=== PATIENT | female | born 1985 | race Caucasian/White ===

== ENCOUNTER 2017-01-24 10:41 | Inpatient (IN) | payer OTHER, MEDICAID ==
[~2017-01-24] VITALS: Ht 172.7 cm; Wt 105.0 kg
[2017-03-20] VITALS (39 sets, daily range): BP systolic 103–142; BP diastolic 59–89; PULSE 70–99; TEMP 97.3–98.1
[2017-03-20] MEDS ORDERED: ZANTAC 150MG T150 MG PO (07:40)
[2017-03-20 08:38] LABS: BASO # 0.1 (0.0-0.2); BASO % 0.5 % (0.0-2.0); EOS % 0.3 % (0-4.0); GRAN # 9.8 (1.4-6.5); LYMPH # 2.5 (1.2-3.4); LYMPH % 19.1 % (20.0-51.0); MEAN CELL VOLUME 87 fl (80.0-100.0); MEAN CORPUSCULAR HGB CONC 33 g/dl (33.0-37.0); MEAN PLATELET VOLUME 12.2 fl (7.4-10.4); MONO # 0.5 (0.1-0.6); MONO % 3.6 % (1.7-9.3); PLATELET COUNT 273 K/mm3 (130-400); RED BLOOD COUNT 4.06 M/mm3 (4.10-5.30); REDCELL DISTRIBUTION WIDTH-CV 15.1 % (11.5-14.5)
[2017-03-20 08:43] LABS: HEMATOCRIT 35.1 % (37.0-47.0); HEMOGLOBIN 11.6 g/dl (12.5-16.0); MEAN CORPUSCULAR HEMOGLOBIN 29 pg (27.0-31.0)
[2017-03-21 00:30] VITALS: BP 124/73; PULSE 70; TEMP 98.5
[2017-03-21 06:43] LABS: HEMATOCRIT 31.8 % (37.0-47.0); HEMOGLOBIN 10.4 g/dl (12.5-16.0)
[2017-03-21 08:15] VITALS: BP 115/77; PULSE 87; TEMP 98
[2017-03-21] MEDS ORDERED: IBU600 MG PO (09:16)
[2017-03-21] MEDS ORDERED: PERCOCET 325 MG1 TA2 PO (09:16)
[2017-03-21 16:00] VITALS: BP 127/82; PULSE 87; TEMP 97.8
[2017-03-21 20:45] VITALS: BP 130/81; PULSE 76; TEMP 97.4
[2017-03-22 09:00] VITALS: BP 132/84; PULSE 74; TEMP 97.7
== END 2017-03-22 16:20 | disposition home or self-care (01) | DRG 775 ==
LOC: LDR 03-14 10:40 → OB 03-20 07:12 → LDR 03-20 07:12 → OB 03-20 18:00
PROVIDERS: Obstetrics & Gynecology
PROC: 10E0XZZ Delivery of Products of Conception, External Approach (ICD-10-PCS; principal; 2017-03-20)
PROC: 0KQM0ZZ Repair Perineum Muscle, Open Approach (ICD-10-PCS; 2017-03-20)
DX: O48.0 Post-term pregnancy (principal); O70.1 Second degree perineal laceration during delivery; Z3A.40 40 weeks gestation of pregnancy; Z37.0 Single live birth
CPT/HCPCS: J2590; J7120